=== PATIENT | female | born 2000 | race Caucasian/White ===

== ENCOUNTER 2023-11-02 05:39 | Emergency (ER) | payer OTHER, SELFPAY ==
[2023-11-02 05:41] VITALS: BP 122/74
--- NOTE | 2023-11-02 07:09 | ED.GENMED ---
History of Present Illness
General
Chief Complaint: Back Pain
Source: patient
Exam Limitations: none
Time Seen by Provider: 11/02/23 07:03
Nursing documentation reviewed up to this point in time: agreed with
Travel History
Have you had any contact with someone who has COVID-19?: No
Do you have any symptoms of coronavirus? Fever > 100 degrees, chills, cough, shortness of breath, sore throat, loss of taste or smell, muscle aches, or headache?: No
History of Present Illness
History of Present Illness:
22-year-old female with history of HTN takes verapamil, HCTZ, triamterene, Adderall presents stating she developed gradual onset 2 nights ago of mid to left low back pain and left rib pain that is now stabbing 9/10. Her back pain is constant her
rib pain is intermittent. Her last medication was Tylenol which she took at midnight with little relief. She feels nauseous and has vomited twice. She denies fever but felt chilled. She denies UTI symptoms.
Past History
Past History
ED Past Medical History: HTN; Negative Asthma, Hypercholesterolemia or NIDDM
ED Past Surgical History: None
Social History
Tobacco: Non-smoker
Alcohol: Occasional
Personal: Single
Living: with family (and at college)
Review of Systems
Review of Systems
Allergies reviewed?: Yes
All Other Systems: ROS reviewed and negative except as documented in HPI and ROS
Constitutional: Reports fatigue; Denies fever
EENT: Reports sore throat
Respiratory: Denies cough or trouble breathing
Cardiac: Denies chest pain
ABD/GI: Reports nausea, vomiting, constipated and anorexia; Denies abdominal pain or diarrhea
: Reports flank pain (right); Denies dysuria, frequency or urgency
Skin: Reports no symptoms
Neurological: Reports no symptoms
Phy Exam
Physical Exam
Physical Exam:
GENERAL: Moderately uncomfortable due to left flank pain. A&Ox3.
CONSTITUTIONAL: Afebrile.
EYES: Clear, conjunctivae normal
ENMT: Dry mucus membranes, Pharynx: tonsils mildly swollen with whitish cole exudate. Speaking and swallowing well.
RESPIRATORY: Regular respirations, nonlabored, lungs clear.
CARDIOVASCULAR: Regular rate and rhythm, no murmurs, no rubs.
GI: Soft, nontender, normal BS. Left flank tenderness
MUSCULOSKELETAL: Moves with ease. Well perfused.
SKIN: Warm, dry, pink
PSYCH: Anxious mood and affect. Well kept, interactive and appropriate
NEUROLOGIC: Awake, alert and oriented. No focal neurological deficits
Course
Orders/Labs/Results
Orders:
Orders
11/02/23 06:33
Test Result ONCE
11/02/23 07:13
CMP [Comprehensive Metabolic Panel] Urgent
Complete Blood Count/With Diff Urgent
HCG, Serum Qualitative Screen Urgent
11/02/23 07:28
Ondansetron Injectable [Zofran] 4 mg .ROUTE .STK-MED ONE
11/02/23 07:29
0.9% Sodium Chloride 1000 ml [Nss] 1,000 ml IV BOLUS
Ketorolac [Toradol] 15 mg .ROUTE .STK-MED ONE
Ketorolac [Toradol] 15 mg IV NOW STA
Ondansetron Injectable [Zofran] 4 mg IV NOW STA
11/02/23 07:30
CT Abd/pel Without Iv Or Oral Urgent
Comment:
Reason For Exam: L flank pain
11/02/23 08:18
Urinalysis Urgent
Date Specimen was Collected: 11/02/23
Time Specimen was Collected: 06:33
Urine Microscopic Urgent
Date Specimen was Collected: 11/02/23
Time Specimen was Collected: 06:33
11/02/23 09:25
Rapid Strep Group A Urgent
ERIC Source: Throat/Pharynx
Specimen Description:
Date Specimen was Collected: 11/02/23
Time Specimen was Collected: 09:22
Throat Culture [Throat Culture, Comprehensive] Urgent
ERIC Source: Throat/Pharynx
Specimen Description:
Date Specimen was Collected: 11/02/23
Time Specimen was Collected: 09:22
11/02/23 10:05
0.9% Sodium Chloride 1000 ml [Nss] 1,000 ml IV BOLUS
11/02/23 10:06
Dexamethasone Sod Phosphate [Decadron] 10 mg IV NOW STA
11/02/23 10:20
Monotest Urgent
11/02/23 11:36
Magnesium Citrate [Citroma] 300 ml PO ONCE ONE
Abnormal Lab Results
11/02/23 11/02/23
07:13 08:18
WBC 14.2 H 10^3/uL
(4.8-10.8)
MCHC 37.5 H g/dL
(33.0-37.0)
RDW 11.2 L %
(11.5-14.5)
MPV 10.6 H fL
(7.4-10.4)
Abs Immat Gran (auto) 0.1 H 10^3/uL
(0-0.05)
Absolute Neuts (auto) 12.6 H 10^3/uL
(1.4-6.5)
Absolute Lymphs (auto) 0.5 L 10^3/uL
(1.2-3.4)
Absolute Monos (auto) 0.9 H 10^3/uL
(0.1-0.6)
Immature Gran % 0.6 H %
(0-0.5)
Neutrophils % 89.0 H %
(42.2-75.2)
Lymphocytes % 3.5 L %
(20.5-51.1)
Sodium 132 L mmol/L
(135-145)
Potassium 3.3 L mmol/L
(3.5-5.1)
Carbon Dioxide 21 L mmol/L
(22-30)
Total Bilirubin 3.1 H mg/dl
(0.2-1.3)
AST 38 H U/L
(14-36)
Urine Ketones 3+ A
(Negative)
Urine Bilirubin 1+ A
(Negative)
Ur Leukocyte Esterase Trace A
(Negative)
Urine WBC 6-10 A /HPF
(0-5)
Urine Bacteria Few A
(Negative)
11/02/23 07:13
11/02/23 07:13
Vital Signs
Initial and Last Documented VS:
Initial Vital Signs
Temp Pulse Resp BP Pulse Ox
97.4 F 104 22 122/74 100
11/02/23 05:41 11/02/23 05:41 11/02/23 05:41 11/02/23 05:41 11/02/23 05:41
Last Documented Vital Signs
Temp Pulse Resp BP Pulse Ox
98 F 90 16 98/64 99
11/02/23 11:12 11/02/23 11:12 11/02/23 11:12 11/02/23 11:00 11/02/23 11:00
Signal Manager consulted with Physician
Signal Manager consulted with physician?: Yes
Name of Physician Consulted: Gucci
MDM/Problems Addressed
Differential Diagnosis Includes:
Kidney/ureteral calculus, UTI, pyelonephritis
Viral vs bacterial pharyngitis, mono
MDM/Problems Addressed:
22-year-old female with history of HTN takes verapamil, HCTZ, triamterene, Adderall presents stating she developed gradual onset 2 nights ago of mid to left low back pain and left rib pain that is now stabbing 9/10. Her back pain is constant her
rib pain is intermittent. Her last medication was Tylenol which she took at midnight with little relief. She feels nauseous and has vomited twice. She denies fever but felt chilled. She denies UTI symptoms.
Afebrile
11/02/2023 0813 AM
Feeling better after IV fluids and medication, ambulating to back from without difficulty
CBC: WBC 14.2.
CMP: Sodium 132, potassium 3.3, total bilirubin 3.1, these are most likely due to dehydration
hCG negative
11/02/[address] abdomen pelvis, radiology report read: IMPRESSION:
1. No significant acute abnormality identified in the abdomen or pelvis, within the limits of unenhanced CT, as described above. No urinary calculi or hydronephrosis. Normal appendix.
2. Moderate diffuse colonic stool burden may reflect constipation.
11/02/2023 1128 AM
Rapid strep negative
Monotest negative, patient will be given a bottle of mag citrate for constipation
She was given Decadron 10 mg IV for her sore throat
Pending her final throat culture results she will continue the
Ambulated out with normal gait at discharge
*Critical Care Note
Total Time (30-74mins, 75-104mins- exclusive of procedures): Not Applicable
ED Attending Note
-
Portions of this chart may have been created with voice recognition software.� Occasional wrong word or��sound alike� substitutions may have occurred due to the inherent limitations of voice recognition software.
Discharge Plan
Departure
Patient Disposition: Home (Routine Discharge)
Date of Disposition: 11/02/23
Time of Disposition: 11:32
Patient with high blood pressure during this ER visit?: No
Condition: Good
Discharge Problem:
Pharyngitis, Constipation
Instructions: Constipation, Adult (DC), Sore Throat, Adult (DC)
Referrals:
Deepak Chatman DO [Family Provider] - Follow up in 5-7 days
Activity Restrictions/Additional Instructions:
As we discussed, your rapid strep is negative, your monotest is negative, you may continue the antibiotic as it may help, pending your final throat culture results.
You were given a steroid, Decadron 10 mg, here today that should help with the inflammation and pain.
Tylenol or ibuprofen as needed for fever or pain
Interventions
Interventions:
*Risk Screen - Suicide Last Done: 11/02/23 05:41
*Neglect/Abuse Screening Last Done: 11/02/23 05:41
*ED COVID-19 Vaccine History Last Done: 11/02/23 07:14
*Nursing Disposition Last Done: 11/02/23 11:51
IT-Jttpzk-Fazkwvpbjg Assessment Last Done: 11/02/23 07:16
ED-Musculoskeletal Assessment Last Done: 11/02/23 07:16
Discharge Date and Time
Discharge Date/Time: 11/02/23 11:51
[2023-11-02 07:11] VITALS: BP 105/64
[2023-11-02] MEDS: TORADOL 15 MG IV (07:34)
[2023-11-02] MEDS: ZOFRAN 4 MG IV (07:34)
[2023-11-02] MEDS: NSS 1000 IV ×2 (07:35→10:22)
[2023-11-02 07:38] LABS: % Basophils 0.3 % (0-2); % Immature Granulocytes 0.6 % (0-0.5); % Lymphocytes 3.5 % (20.5-51.1); % Monocytes 6.6 % (1.7-9.3); Absolute Immature Granulocytes 0.1 10^3/uL (0-0.05); Absolute Lymphocytes 0.5 10^3/uL (1.2-3.4); Absolute Monocytes 0.9 10^3/uL (0.1-0.6); Absolute Neutrophils 12.6 10^3/uL (1.4-6.5); Hematocrit 40.8 % (37.0-47.0); Hemoglobin 15.3 g/dL (12.0-16.0); Mean Corp Hgb Conc. 37.5 g/dL (33.0-37.0); Mean Corpuscular Hgb 30.4 pg (27.0-31.0); Mean Corpuscular Volume 81.1 fL (81.0-99.0); Mean Platelet Volume 10.6 fL (7.4-10.4); Nucleated Red Blood Cells % 0 %; Platelet Count 236 10^3/uL (130-400); Red Blood Cell Count 5.03 10^6/uL (4.20-5.40); Red Cell Dist. Width 11.2 % (11.5-14.5); White Blood Cell Count 14.2 10^3/uL (4.8-10.8)
[2023-11-02 07:44] LABS: ALT (SGPT) 27 U/L (0-35); AST (SGOT) 38 U/L (14-36); Albumin 4.4 g/dl (3.5-5.0); Alkaline Phosphatase 64 U/L (38-126); Blood Urea Nitrogen 11 mg/dl (7-17); Calcium 9.5 mg/dl (8.4-10.2); Carbon Dioxide 21 mmol/L (22-30); Chloride 101 mmol/L (98-107); Glucose 90 mg/dl (70-99); Potassium 3.3 mmol/L (3.5-5.1); Sodium 132 mmol/L (135-145); Total Bilirubin 3.1 mg/dl (0.2-1.3); Total Protein 6.9 g/dl (6.3-8.2); eGFR > 60.00
[2023-11-02 07:48] LABS: HCG, Serum Qualitative Screen Negative
[2023-11-02 08:21] VITALS: BP 102/71
[2023-11-02 08:31] LABS: Urine Albumin Trace (Neg - Trace); Urine Bilirubin 1+ (Negative); Urine Character Clear (Clear); Urine Color Yellow; Urine Glucose Negative (Negative); Urine Ketone 3+ (Negative); Urine Leukocyte Trace (Negative); Urine Nitrite Negative (Negative); Urine Occult Blood Negative (Negative); Urine Specific Gravity 1.025 (<1.030); Urine Urobilinogen 1+ (Neg - 1+)
[2023-11-02 09:00] VITALS: BP 96/67
[2023-11-02 09:11] LABS: Urine Mucus Many
[2023-11-02 09:12] LABS: Urine Amorphous Seen
[2023-11-02 09:15] LABS: Urine Bacteria Few (Negative); Urine Red Blood Cell 0-2 /HPF (0-2)
[2023-11-02 10:00] VITALS: BP 95/62
[2023-11-02] MEDS: DECADRON 10 MG IV (10:22)
[2023-11-02 11:00] VITALS: BP 98/64
[2023-11-02 11:00] LABS: Monotest Negative (Negative)
[2023-11-02] MEDS: CITROMA 300 ML PO (11:45)
== END 2023-11-02 11:51 | disposition home or self-care (01) ==
LOC: EMR 05:39
PROVIDERS: Registered Nurse; EMERGENCY PHYSICIAN Emergency Medicine; FAMILY PHYSICIAN Family Medicine
DX: J02.9 Acute pharyngitis, unspecified (principal); K59.00 Constipation, unspecified; M54.50 Low back pain, unspecified; I10 Essential (primary) hypertension; R07.81 Pleurodynia
CPT/HCPCS: 99284; 96374; 96375; 96361; 74176; 80053; 81003; 81015; 84703; 85025; 86308; 87070; 87880

== ENCOUNTER 2025-08-21 02:40 | Emergency (ER) | payer OTHER, SELFPAY ==
[2025-08-21 02:52] VITALS: BP 118/77
[2025-08-21 03:00] VITALS: BP 103/79
[2025-08-21 03:05] LABS: Hematocrit 41.2 % (37.0-47.0); Hemoglobin 15.1 g/dL (12.0-16.0); Mean Corp Hgb Conc. 36.7 g/dL (33.0-37.0); Mean Corpuscular Volume 82.4 fL (81.0-99.0); Nucleated Red Blood Cells % 0 %; Platelet Count 321 10^3/uL (130-400); Red Cell Dist. Width 11.2 % (11.5-14.5)
[2025-08-21 03:30] LABS: ALT (SGPT) 26 U/L (0-35); AST (SGOT) 28 U/L (14-36); Albumin 4.6 g/dl (3.5-5.0); Alkaline Phosphatase 50 U/L (38-126); Blood Urea Nitrogen 14 mg/dl (7-17); Calcium 9.8 mg/dl (8.4-10.2); Carbon Dioxide 21 mmol/L (22-30); Chloride 102 mmol/L (98-107); Estimated Creatinine Clearance 107 ml/min; Glucose 158 mg/dl (70-99); Potassium 3.6 mmol/L (3.5-5.1); Sodium 134 mmol/L (135-145); Total Protein 7.3 g/dl (6.3-8.2); eGFR > 60.00
[2025-08-21] MEDS: NSS 1000 IV (03:30)
[2025-08-21] MEDS: VALIUM INJECTION 2.5 MG IV (03:30)
[2025-08-21] MEDS: ZOFRAN 4 MG IV (03:31)
[2025-08-21 04:00] VITALS: BP 99/73
[2025-08-21 05:00] VITALS: BP 96/70
--- NOTE | 2025-08-21 05:47 | ED.GENMED ---
History of Present Illness
General
Chief Complaint: Dizziness
Source: patient and family
Exam Limitations: none
Time Seen by Provider: 08/21/25 03:08
History of Present Illness
History of Present Illness:
Note:
CHIEF COMPLAINT(S)
Nausea, dizziness, and episodes related to Menieres disease.
HISTORY OF PRESENT ILLNESS
The patient is a 24-year-old female with a known history of Menieres disease who presents with symptoms of nausea and dizziness. The patient has experienced similar episodes in the past due to her condition. She reports difficulty in retaining
solids or liquids, indicating a significant problem with nausea. The patient notes that her dizziness is 'not great,' suggesting it is a persistent issue. Symptoms commenced recently, although the exact duration was not stated. She has been under
the care of a doctor affiliated with [facility] for her Menieres disease for many years. Current management of her condition includes nortriptyline and occasional use of Valium and anti-nausea medication. The patient rates Zofran
(ondansetron) as effective for managing nausea but reports that Reglan (metoclopramide) and Benadryl (diphenhydramine) could also be beneficial.
ADDITIONAL HISTORY OBTAINED FROM SOURCES OTHER THAN THE PATIENT
According to EMS, the patient received ondansetron en route, which provided some relief. More ondansetron is planned for administration during this visit.
SOCIAL DETERMINANTS AFFECTING HEALTH
No significant social determinants affecting health were mentioned during the discussion.
ALLERGIES
The patient reported no known drug allergies.
MEDICATIONS
Current medications include nortriptyline for Menieres disease. The patient uses Valium (diazepam) as needed for symptom relief, typically in 2 mg doses orally.
PHYSICAL EXAM
General: Alert, no acute distress.
Skin: Warm, dry.
Head: Normocephalic, atraumatic.
Neck: Supple, trachea midline.
Eyes: Pupils equal, round, and reactive to light. No focal motor deficits.
Cardiovascular: Regular heart rate and rhythm without murmur.
Respiratory: Respiration non-labored, lung zelaya clear to auscultation.
Gastrointestinal: Abdomen nondistended.
Back: Normal range of motion, alignment intact.
Musculoskeletal: Normal range of motion, normal strength.
Neurological: Alert and oriented to person, place, time, and situation, no focal neurological deficit observed.
Psychiatric: Cooperative, appropriate mood and affect.
PLAN
The management plan includes administration of intravenous ondansetron for nausea and intravenous diazepam. Starting with a lower dose of diazepam is advised, with a strategy to escalate if necessary. Consideration of additional medications like
Reglan and Benadryl remains contingent on the initial response to treatment. The patient will be monitored closely with an offer for further intervention if current management is insufficient.
DIFFERENTIAL DIAGNOSIS
The Differential Diagnosis includes, in no particular order and is not limited to:
1. Vertigo secondary to Menieres disease
2. Vestibular migraine
3. Labyrinthitis
4. Benign paroxysmal positional vertigo (BPPV)
5. Acute vestibular neuritis
6. Motion sickness
7. Medication-induced dizziness
8. Hypoglycemia
9. Anxiety-related dizziness
10. Inner ear infection
Disposition:
SUMMARY OF ENCOUNTER
A 24-year-old female with a history of Menieres disease presented with exacerbation of her symptoms, including vertigo, nausea, and dizziness. In the emergency department, she was administered intravenous diazepam and antiemetics, which led to a
significant improvement in her symptoms. Her neurological exam did not show any focal deficits. As she was able to tolerate oral liquids, she was assessed to be stable enough to manage her symptoms at home using her prescribed medications, including
nortriptyline and diazepam. There are no significant signs of deterioration, and the plan involves follow-up care and symptom management at home.
ASSESSMENT
Exacerbation of Menieres disease symptoms, primarily presenting as vertigo and nausea, managed with improvement post-treatment.
EMERGENCY TREATMENTS ADMINISTERED
Intravenous diazepam (Valium) and antiemetics.
PLAN
Continue symptom management at home using the patients existing medications. Emphasize the importance of hydration and adherence to prescribed regimens. Follow-up with her primary physician or specialist as needed if symptoms persist or worsen.
INDEPENDENT REVIEW OF LABS AND INTERPRETATION OF TESTS
My independent review of BMP is normal. My independent review of CBC is normal.
MEDICATION RECONCILIATION
Patient uses nortriptyline for Menieres disease and diazepam (Valium) as needed for symptom relief. Intravenous diazepam (Valium) and antiemetics were administered in the emergency department.
MEDICAL DECISION MAKING
-Complexity of Data Reviewed: Chronic conditions affecting care include Menieres disease and differential diagnoses such as vertigo secondary to Meniere�s disease, vestibular migraine, labyrinthitis, benign paroxysmal positional vertigo (BPPV),
acute vestibular neuritis, motion sickness, medication-induced dizziness, hypoglycemia, anxiety-related dizziness, and inner ear infection.
-Data:
Category 1: Clinical information was obtained from EMS, which reported the patients administration of ondansetron en route.
-Risk: Prescription medication was managed, and decision-making involved ensuring the symptoms were sufficiently controlled before recommending home discharge.
DIAGNOSIS
Menieres Disease Exacerbation (H81.09).
Past History
Past History
ED Past Medical History: HTN; Negative Asthma, Hypercholesterolemia or NIDDM
ED Past Surgical History: None
Social History
Tobacco: Non-smoker
Alcohol: Occasional
Personal: Single
Living: with family (and at college)
Phy Exam
Physical Exam
Physical Exam:
.
Course
Orders/Labs/Results
Orders:
Orders
08/21/25 02:51
Complete Blood Count/With Diff Urgent
Comprehensive Metabolic Panel Urgent
08/21/25 03:23
0.9% Sodium Chloride 1000 ml [Nss] 1,000 ml IV BOLUS
Ondansetron Injectable [Zofran] 4 mg IV NOW STA
diazePAM [Valium Injection] 2.5 mg IV NOW STA
Abnormal Lab Results
08/21/25
02:51
RDW 11.2 L %
(11.5-14.5)
Abs Immat Gran (auto) 0.1 H 10^3/uL
(0-0.05)
Absolute Neuts (auto) 7.1 H 10^3/uL
(1.4-6.5)
Immature Gran % 0.6 H %
(0-0.5)
Lymphocytes % 20.2 L %
(20.5-51.1)
Sodium 134 L mmol/L
(135-145)
Carbon Dioxide 21 L mmol/L
(22-30)
Glucose 158 H mg/dl
(70-99)
Total Bilirubin 1.4 H mg/dl
(0.2-1.3)
08/21/25 02:51
08/21/25 02:51
Vital Signs
Initial and Last Documented VS:
Initial Vital Signs
Temp Pulse Resp Pulse Ox
97.5 F 95 25 100
08/21/25 02:41 08/21/25 02:41 08/21/25 02:41 08/21/25 02:41
Last Documented Vital Signs
Temp Pulse Resp BP Pulse Ox
97.5 F 97 21 96/70 100
08/21/25 02:41 08/21/25 05:15 08/21/25 05:00 08/21/25 05:00 08/21/25 05:49
*Pulse Oximetry
SaO2: 100
Oxygen Mode of Delivery: Room air
Patient hypoxic: no
*Critical Care Note
Total Time (30-74mins, 75-104mins- exclusive of procedures): Not Applicable
Data Reviewed
Source: patient
Further Testing Considered But Not Given:
Considered head CT but symptoms similar to prior M�ni�re's exacerbation
ED Attending Note
-
Portions of this chart may have been created with voice recognition software.� Occasional wrong word or��sound alike� substitutions may have occurred due to the inherent limitations of voice recognition software.
Discharge Plan
Departure
Patient Disposition: Home (Routine Discharge)
Date of Disposition: 08/21/25
Time of Disposition: 05:48
Patient with high blood pressure during this ER visit?: No
Discharge Problem:
Vertigo, Meniere disease
Instructions: Vertigo (a Type of Dizziness) (DC)
Prescriptions:
New
ondansetron 4 mg tablet,disintegrating
4 mg PO Q8H PRN (Reason: nausea and vomiting) Qty: 20 0RF
Referrals:
Deepak Chatman DO [Family Provider, Family Practice]
Activity Restrictions/Additional Instructions:
Please see your doctor in the next 3 to 5 days for follow-up and reevaluation. Continue your at home medications. Return immediately for intractable vomiting, intractable dizziness or any other concerns
Interventions
Interventions:
*General Assessment Last Done: 08/21/25 02:46
*Neglect/Abuse Screening Last Done: 08/21/25 03:00
*ED COVID-19 Vaccine History Last Done: 08/21/25 02:46
*ED Influenza Vaccine History Last Done: 08/21/25 02:46
*Risk Screen - Suicide (C-SSRS) Last Done: 08/21/25 03:00
ED- Neurological Assessment Last Done: 08/21/25 05:16
ED- Cardiac Assessment Last Done: 08/21/25 05:16
ED Swallowing Screen Last Done: 08/21/25 05:16
Discharge Date and Time
Print Language: PASHTO
== END 2025-08-21 06:10 | disposition home or self-care (01) ==
LOC: EMR 02:40
PROVIDERS: EMERGENCY PHYSICIAN Emergency Medicine; FAMILY PHYSICIAN Family Medicine
DX: H81.09 Meniere's disease, unspecified ear (principal); I10 Essential (primary) hypertension
CPT/HCPCS: 96374; 96375; 96361; 99284; 80053; 85025